=== PATIENT | male | born 1980 | race African-American/Black ===

== ENCOUNTER 2016-11-15 04:15 | Emergency (ER) | payer OTHER ==
[~2016-11-15] VITALS: Ht 177.8 cm; Wt 75.0 kg
[2016-11-15 07:05] VITALS: BP 129/71
== END 2016-11-15 07:20 | disposition home or self-care (01) ==
LOC: ER 07:00
DX: S11.91XD Laceration without foreign body of unspecified part of neck, subsequent encounter (principal); F17.200 Nicotine dependence, unspecified, uncomplicated; F12.10 Cannabis abuse, uncomplicated; X58.XXXD Exposure to other specified factors, subsequent encounter; Y92.89 Other specified places as the place of occurrence of the external cause; Y99.8 Other external cause status
CPT/HCPCS: 99281

== ENCOUNTER 2016-12-25 01:30 | Emergency (ER) | payer OTHER, MEDICAID ==
[~2016-12-25] VITALS: Ht 177.8 cm; Wt 70.0 kg
[2016-12-25] MEDS ORDERED: TETANUS, DIPHTHERIA, PERTUSSIS VAC/PF 0.5ML (>7YR OLD) IM ONE (02:30)
[2016-12-25] MEDS ORDERED: SODIUM CHLORIDE 0.9% 1,000 ML IV ONE (02:30)
[2016-12-25 02:56] LABS: BASOPHILS % 0.7 % (0.0-2.0); EOSINOPHILS % 0.1 % (0.0-5.0); HEMATOCRIT. 39.9 % (42.0-52.0); HEMOGLOBIN. 13.6 g/dL (14.0-18.0); MEAN CORPUSCULAR HEMOGLOBIN 30.6 pg (28.0-32.0); MEAN CORPUSCULAR VOLUME 89.9 fL (80.0-94.0); MEAN PLATELET VOLUME 7.6 fl (7.4-10.4); MONOCYTES % 7.2 % (2.0-8.0); PLATELET 222 x1000/uL (130-400); RED BLOOD CELL COUNT 4.44 mill/uL (4.7-6.1); RED CELL DISTRIBUTION WIDTH 13.5 % (11.6-14.6)
[2016-12-25 02:59] LABS: INR 1.1; PROTHROMBIN TIME 11.9 sec (9.4-11.6)
[2016-12-25 03:05] LABS: CHLORIDE 100 mEq/L (98-107)
[2016-12-25 03:21] LABS: CARBON DIOXIDE 23 mEq/L (21-32); ETHANOL BLOOD < 10 mg/dL
[2016-12-25 04:30] VITALS: BP 165/95
[2016-12-25] MEDS ORDERED: POTASSIUM BICARB/CIT ACID 25 MEQ TABLET.EFF PO ONE (04:30)
[2016-12-25] MEDS ORDERED: POTASSIUM BICARB/CIT ACID 25 MEQ TABLET.EFF PO SCH (04:45)
[2016-12-25 05:41] LABS: *AMPHETAMINES SCREEN URINE NEGATIVE (NEGATIVE); *BARBITURATES SCREEN URINE NEGATIVE (NEGATIVE); *BENZODIAZEPINES SCREEN URINE NEGATIVE (NEGATIVE); *COCAINE SCREEN URINE NEGATIVE (NEGATIVE); CANNABINOID URINE SCREEN PRESUMTIVE POSITIVE (NEGATIVE); METHADONE URINE SCREEN NEGATIVE (NEGATIVE); OPIATES URINE SCREEN NEGATIVE (NEGATIVE); PHENCYCLIDINE URINE SCREEN NEGATIVE (NEGATIVE)
== END 2016-12-25 05:00 | disposition home or self-care (01) ==
LOC: ER 01:58
DX: S09.90XA Unspecified injury of head, initial encounter (principal); S50.312A Abrasion of left elbow, initial encounter; S20.219A Contusion of unspecified front wall of thorax, initial encounter; F31.9 Bipolar disorder, unspecified; I10 Essential (primary) hypertension; F12.10 Cannabis abuse, uncomplicated; H26.9 Unspecified cataract; F20.9 Schizophrenia, unspecified; R10.9 Unspecified abdominal pain; E87.6 Hypokalemia; Y08.89XA Assault by other specified means, initial encounter; Y93.89 Activity, other specified; Y92.89 Other specified places as the place of occurrence of the external cause
CPT/HCPCS: 36415; 70450; 71010; 74176; 80053; 80305; 85025; 85610; 93005; 96360; 96361; 99285; G0482; J7030

== ENCOUNTER 2017-12-04 19:52 | Emergency (ER) | payer OTHER, MEDICAID | END 2017-12-04 20:25 | disposition left against medical advice (07) | LOC: ER 19:52 | DX: Z76.0 Encounter for issue of repeat prescription (principal); Z53.21 Procedure and treatment not carried out due to patient leaving prior to being seen by health care provider ==